=== PATIENT | female | born 1990 ===

== ENCOUNTER 2021-02-09 04:28 | Emergency (ER) | payer SELFPAY ==
[~2021-02-09] VITALS: Ht 154.9 cm; Wt 65.3 kg
[2021-02-09 04:47] VITALS: BP 127/88
--- NOTE | 2021-02-09 05:10 | NUR ---
PT CALLED TO BE PITTED. PT NOT IN LOBBY
--- NOTE | 2021-02-09 05:58 | NUR ---
PT CALLED AGAIN TO BE PITTED. PT NOT IN LOBBY X 2
== END 2021-02-09 06:12 | disposition left against medical advice (07) ==
LOC: ED 06:00
DX: R10.9 Unspecified abdominal pain (principal); Z53.21 Procedure and treatment not carried out due to patient leaving prior to being seen by health care provider